=== PATIENT | male | born 1950 | race Caucasian/White ===

== ENCOUNTER 2020-10-17 16:44 | Emergency (ER) | payer MEDICARE ==
[~2020-10-17] VITALS: Ht 172.7 cm; Wt 100.8 kg
--- NOTE | 2020-10-17 17:18 | REP ---
INDICATION: CHEST PAIN COMPARISON: None. TECHNIQUE: Portable AP view of the chest FINDINGS: The mediastinum and cardiac silhouette are within normal limits for portable technique. The lung blanchard are clear without acute consolidation, effusion, or pneumothorax. Skeletal structures are intact. IMPRESSION: No acute cardiopulmonary process appreciated. <Electronically signed by Cr Horvath > 10/17/20 [id number]
[2020-10-17] MEDS ORDERED: SITA50TAB PO (17:31)
[2020-10-17] MEDS ORDERED: BREO1INH PO (17:31)
[2020-10-17] MEDS ORDERED: LISI10TA22 PO (17:31)
[2020-10-17] MEDS ORDERED: XARE20TA PO (17:31)
[2020-10-17] MEDS ORDERED: METF-877 PO (17:31)
[2020-10-17] MEDS ORDERED: NORV5TAB PO (17:31)
[2020-10-17] MEDS ORDERED: TOPR100T PO (17:31)
[2020-10-17] MEDS ORDERED: MONT10TA10 PO (17:31)
[2020-10-17 17:40] LABS: BASO # 0.1 10^3/uL (0.0-0.2); BASO % 1.2 % (0.0-1.0); EOS # 0.4 10^3/uL (0.0-0.5); EOS % 4.6 % (0.0-3.0); HEMATOCRIT 41.9 % (42.0-52.0); HEMOGLOBIN 13.9 g/dl (13.5-17.5); LYMPH # 1.7 10^3/uL (1.5-5.0); MEAN CORPUSCULAR HEMOGLOBIN 29.4 pg (27.0-33.0); MEAN CORPUSCULAR HGB CONC 33.2 g/dl (32.0-36.5); MEAN CORPUSCULAR VOLUME 88.6 fl (80.0-96.0); MONO # 0.9 10^3/uL (0.0-0.8); MONO % 11.2 % (2.0-8.0); NEUTROPHILS # 5.1 10^3/uL (1.5-8.5); NEUTROPHILS % 61.3 % (36.0-66.0); PLATELET COUNT, AUTOMATED 248 10^3/uL (150-450); RED BLOOD COUNT 4.73 10^6/uL (4.30-6.10); WHITE BLOOD COUNT 8.3 10^3/uL (4.0-10.0)
[2020-10-17 17:53] LABS: INR 1.62; PROTHROMBIN TIME 19.7 SECONDS (12.7-14.5)
[2020-10-17 17:56] LABS: ALBUMIN 3.6 GM/DL (3.2-5.2); ALT/SGPT 24 U/L (12-78); BILIRUBIN,DIRECT 0.3 MG/DL (0.0-0.2); BILIRUBIN,TOTAL 1.1 MG/DL (0.2-1.0); BLOOD UREA NITROGEN 24 MG/DL (7-18); CALCIUM LEVEL 9.7 MG/DL (8.8-10.2); CARBON DIOXIDE LEVEL 29 MEQ/L (21-32); CHLORIDE LEVEL 109 MEQ/L (98-107); CPK CREATINE PHOSPHOKINASE 96 U/L (39-308); CREATININE FOR GFR 1.18 MG/DL (0.70-1.30); GLOMERULAR FILTRATION RATE > 60.0 (>49); GLUCOSE, FASTING 157 MG/DL (70-100); LIPASE 310 U/L (73-393); MB/CK RELATIVE INDEX 2.08 (< OR =4); POTASSIUM SERUM 4.3 MEQ/L (3.5-5.1); SODIUM LEVEL 142 MEQ/L (136-145); TROPONIN I 0.12 NG/ML (< 0.10)
[2020-10-17] MEDS ORDERED: NITROGLYCERIN 0.4 MG SUBL TABLET SL STA (18:04)
[2020-10-17] MEDS ORDERED: NS 500 ML IV ONE (18:05)
[2020-10-17 18:41] VITALS: BP 174/106
[2020-10-17 19:28] LABS: CK-MB VALUE MASS 1.5 NG/ML (<3.6); MB/CK RELATIVE INDEX 1.65 (< OR =4); TROPONIN I 0.13 NG/ML (< 0.10)
[2020-10-17 21:00] VITALS: BP 138/84
--- NOTE | 2020-10-17 21:31 | ECGEPIP ---
[facility] - ED Test Date: 2020-10-17 Pat Name: ANDREA CARY Department: Room: - Gender: Male [place]: : 1950 Requested By: Charlee Hook Order Number: [id number] Reading MD: Roberto Carlos Nova Measurements Intervals [place] Rate: 73 P: 70 AL: 186 QRS: 27 QRSD: 100 T: 126 QT: 444 QTc: 489 Interpretive Statements Sinus rhythm with premature atrial complexes Prolonged QTc interval Nonspecific ST-T wave abnormalities Comparison tracing not on file Electronically Signed on 10-17-2020 21:31:09 EDT by Roberto Carlos Nova
--- NOTE | 2020-10-17 21:32 | ECGEPIP ---
[facility] - ED Test Date: 2020-10-17 Pat Name: ANDREA CARY Department: Room: - Gender: Male Audio Visual Manager: MONAE : 1950 Requested By: ROBERTO CARLOS DEY Order Number: [id number] Reading MD: Roberto Carlos Nova Measurements Intervals [place] Rate: 70 P: 54 IN: 182 QRS: 18 QRSD: 92 T: 149 QT: 442 QTc: 477 Interpretive Statements Sinus rhythm with frequent premature ventricular complexes ST & T wave abnormality, consider anterolateral ischemia extensive artifact Similar to tracing done 10-17-20 Electronically Signed on 10-17-2020 21:32:19 EDT by Roberto Carlos Nova
== END 2020-10-17 21:37 | disposition home or self-care (01) ==
LOC: M ED 16:44
DX: R07.89 Other chest pain (principal); I11.0 Hypertensive heart disease with heart failure; I48.91 Unspecified atrial fibrillation; I25.2 Old myocardial infarction; J45.909 Unspecified asthma, uncomplicated; Z79.899 Other long term (current) drug therapy